=== PATIENT | female | born 1970 | race Two or more races ===

== ENCOUNTER 2020-07-02 10:37 | Inpatient (IN) | payer OTHER ==
[~2020-07-02] VITALS: Ht 157.5 cm; Wt 56.2 kg
[2020-07-06] MEDS ORDERED: PREVACID30 MG PO (11:00)
[2020-07-11] MEDS ORDERED: COLACE100 MG PO (10:30)
[2020-07-11] MEDS ORDERED: TANDEM PLUS CA1 EACH PO (10:31)
[2020-07-11] MEDS ORDERED: CODE1TAB37 PO (10:32)
[2020-07-11] MEDS ORDERED: CIPRO250 MG PO (10:32)
[2020-07-11] MEDS ORDERED: PEPCID AC20 MG PO (10:34)
== END 2020-07-11 11:52 | disposition home or self-care (01) | DRG 743 ==
LOC: SURH 07-06 08:30 → O/R 07-09 08:25 → SURH 07-09 08:30 → OB/GYN 07-09 19:58 → SURG-SUITE 07-10 08:41
PROVIDERS: ADMIT Obstetrics & Gynecology; ATTEND Obstetrics & Gynecology
PROC: 0USG7ZZ Reposition Vagina, Via Natural or Artificial Opening (ICD-10-PCS; 2020-07-09)
PROC: 0UT98ZZ Resection of Uterus, Via Natural or Artificial Opening Endoscopic (ICD-10-PCS; principal; 2020-07-09 11:45)
DX: N87.1 Moderate cervical dysplasia (principal); N72 Inflammatory disease of cervix uteri; D25.1 Intramural leiomyoma of uterus; D25.0 Submucous leiomyoma of uterus; D25.2 Subserosal leiomyoma of uterus

== ENCOUNTER 2020-07-02 11:48 | Outpatient (CLI) | payer OTHER | END 2020-07-02 11:59 | disposition home or self-care (01) | LOC: MAMO-SONO 11:48 | PROVIDERS: ATTEND Obstetrics & Gynecology | DX: Z12.31 Encounter for screening mammogram for malignant neoplasm of breast (principal); N60.11 Diffuse cystic mastopathy of right breast; N60.12 Diffuse cystic mastopathy of left breast; N84.1 Polyp of cervix uteri; N87.1 Moderate cervical dysplasia; D25.1 Intramural leiomyoma of uterus ==

== ENCOUNTER 2021-10-06 13:12 | Outpatient (CLI) | payer OTHER ==
[~2021-10-06 13:12] MED LIST: CIPRO250 MG PO; CODE1TAB37 PO; COLACE100 MG PO; PEPCID AC20 MG PO; PREVACID30 MG PO; TANDEM PLUS CA1 EACH PO
== END 2021-10-06 13:14 | disposition home or self-care (01) ==
LOC: MAMO-SONO 13:12
PROVIDERS: ATTEND Obstetrics & Gynecology
DX: N60.12 Diffuse cystic mastopathy of left breast (principal); Z12.31 Encounter for screening mammogram for malignant neoplasm of breast

== ENCOUNTER 2022-11-30 12:15 | Outpatient (CLI) | payer OTHER | END 2022-11-30 12:22 | disposition home or self-care (01) | LOC: MAMO-SONO 12:15 | PROVIDERS: ATTEND Obstetrics & Gynecology | DX: Z12.31 Encounter for screening mammogram for malignant neoplasm of breast (principal); N60.12 Diffuse cystic mastopathy of left breast; N60.11 Diffuse cystic mastopathy of right breast ==

== ENCOUNTER 2024-06-26 12:54 | Outpatient (CLI) | payer OTHER | END 2024-06-26 13:10 | disposition home or self-care (01) | LOC: MAMO-SONO 12:54 | PROVIDERS: ATTEND Obstetrics & Gynecology | DX: M17.11 Unilateral primary osteoarthritis, right knee (principal); M17.12 Unilateral primary osteoarthritis, left knee; E04.9 Nontoxic goiter, unspecified; N60.11 Diffuse cystic mastopathy of right breast; N60.12 Diffuse cystic mastopathy of left breast; Z12.31 Encounter for screening mammogram for malignant neoplasm of breast ==